=== PATIENT | female | born 1930 | race Caucasian/White ===

== ENCOUNTER 2016-12-22 06:32 | Emergency (ER) | payer OTHER, MEDICARE ==
[~2016-12-22] VITALS: Ht 167.6 cm; Wt 59.0 kg
[~2016-12-22 06:32] MED LIST: AMBIEN5 M1 PO; AMBIEN5 MG PO; ASPIRIN E.C.81 M2 PO; ATENOLOL50 MG PO; ATORVASTATIN CA40 MG PO; Ambien PO; Bactrim,Septra DS 80 PO; CALCIUM600 MG PO; COUMADIN,JANTO1.5 MG PO; COUMADIN,JANTOVE4 MG PO; COUMADIN,JANTOVE5 MG PO; COUMADIN4 MG PO; Calcium PO; Coumadin,Jantoven PO; Cozaar PO; FLAGYL500 MG PO; LANOXIN,DIGI0.125 MG PO; LASIX40 MG PO; Lipitor PO; METAMUCIL CAPSU1 CAP PO; OYST-CAL D, OS500 M1 PO; PLAVIX75 MG PO; PROCARDIA10 MG PO; TENORMIN50 MG PO; Tenormin PO; VICODIN 5-3001 EACH PO; ZESTRIL,PRINIVI10 MG PO; ZOLPIDEM TARTRAT5 MG PO
[2016-12-22 07:23] LABS: BASOPHIL COUNT 0.1 K/uL (0-0.1); EOSINOPHIL (%) 0.9 % (0-5); EOSINOPHIL COUNT 0.1 K/uL (0-0.3); HEMATOCRIT 49.8 % (36.0-46.0); IMMATURE GRANULOCYTE (%) 0.3 % (0.0-0.7); INSTRUMENT ABS NEUTROPHIL CT 7.8 K/uL; LYMPHOCYTE COUNT 2.2 K/uL (1.0-2.8); MCH 30.7 PG (29.0-34.0); MCHC 33.9 G/DL (30.0-36.0); MCV 90.4 FL (83-99); MEAN PLAT.VOLUME 9.8 uM^3 (9.5-12.4); MONOCYTE (%) 7.4 % (3-12); MONOCYTE COUNT 0.8 K/uL (0-0.8); NEUTROPHIL COUNT 7.8 K/uL (1.8-6.4); PLATELET COUNT 173 K/uL (156-360); RBC DIS.WIDTH-CV 12.6 % (11.8-14.6); RBC DIS.WIDTH-SD 41.7 % (39-53); RED BLOOD COUNT 5.51 M/uL (3.80-5.20)
[2016-12-22 07:33] LABS: PROTHROMBIN TIME 33.1 (9.2-11.2); PTT 39.5 (25-32)
[2016-12-22 07:36] LABS: INTER. NORMALIZED RATIO 3.1
[2016-12-22 08:06] LABS: TROP-I INTERPRETATION NEGATIVE; TROPONIN-I 0.01 ng/mL (0.0-0.30)
[2016-12-22 08:52] LABS: ANION GAP 7 MEQ/L (2-14); CHLORIDE 104 MEQ/L (99-109); SAMPLE HEMOLYSIS CHECK 1; SAMPLE ICTERIC CHECK 0; SAMPLE LIPEMIA CHECK 0; SODIUM 139 MEQ/L (136-147)
[2016-12-22 08:57] LABS: GFR ESTIMATE (CALCULATED) > 59 mL/min/; GLUCOSE 111 mg/dL (70-99); POTASSIUM 4.5 MEQ/L (3.7-5.4); UREA NITROGEN (BUN) 24 mg/dL (9-23)
[2016-12-22 10:43] LABS: TROP-I INTERPRETATION NEGATIVE; TROPONIN-I 0.01 ng/mL (0.0-0.30)
[2016-12-22] MEDS ORDERED: CEFTIN500 MG PO (11:26)
[2016-12-22 12:31] VITALS: BP 135/91
== END 2016-12-22 12:32 | disposition home or self-care (01) ==
LOC: EME 06:32
PROVIDERS: Emergency Medicine
DX: J18.9 Pneumonia, unspecified organism (principal); I48.91 Unspecified atrial fibrillation; I11.0 Hypertensive heart disease with heart failure; I50.9 Heart failure, unspecified; I25.2 Old myocardial infarction; Z79.82 Long term (current) use of aspirin; Z79.01 Long term (current) use of anticoagulants
CPT/HCPCS: 70498; 71010; 71275; 80048; 83880; 84484; 85025; 85610; 85730; 93005; 99281; 99283

== ENCOUNTER 2017-05-20 04:18 | Emergency (ER) | payer OTHER, MEDICARE ==
[~2017-05-20] VITALS: Ht 167.6 cm; Wt 58.8 kg
[~2017-05-20 04:18] MED LIST changes: +CEFTIN500 MG PO
[2017-05-20 04:55] LABS: HEMATOCRIT 47.4 % (36.0-46.0); MCH 30.1 PG (29.0-34.0); MCHC 33.1 G/DL (30.0-36.0); MCV 90.8 FL (83-99); MEAN PLAT.VOLUME 9.8 uM^3 (9.5-12.4); PLATELET COUNT 182 K/uL (156-360); RBC DIS.WIDTH-CV 12.9 % (11.8-14.6); RBC DIS.WIDTH-SD 42.6 % (39-53); RED BLOOD COUNT 5.22 M/uL (3.80-5.20); WHITE BLOOD COUNT 7.7 K/uL (4.1-10.2)
[2017-05-20 05:04] LABS: CHLORIDE 102 mEq/L (99-109); POTASSIUM 3.9 mEq/L (3.7-5.4); SODIUM 140 mEq/L (136-147)
[2017-05-20 05:06] LABS: GLUCOSE 121 mg/dL (70-99)
[2017-05-20 05:07] LABS: ANION GAP 10 MEQ/L (2-14)
[2017-05-20 05:10] LABS: GFR ESTIMATE (CALCULATED) > 59 mL/min/; UREA NITROGEN (BUN) 20 mg/dL (9-23)
[2017-05-20 05:17] LABS: TROP-I INTERPRETATION NEGATIVE; TROPONIN-I 0.01 ng/mL (0.0-0.30)
[2017-05-20 05:22] LABS: INTER. NORMALIZED RATIO 2.9; PROTHROMBIN TIME 33.8 SEC (10.2-12.9)
[2017-05-20 06:34] VITALS: BP 145/95
== END 2017-05-20 06:36 | disposition home or self-care (01) ==
LOC: EME 04:18
DX: R00.2 Palpitations (principal); I11.0 Hypertensive heart disease with heart failure; I50.9 Heart failure, unspecified; I48.91 Unspecified atrial fibrillation; I25.2 Old myocardial infarction; Z79.82 Long term (current) use of aspirin; Z79.01 Long term (current) use of anticoagulants
CPT/HCPCS: 71020; 80048; 84484; 85027; 85610; 93005; 99281; 99284